=== PATIENT | male | born 1995 | race Caucasian/White ===

== ENCOUNTER 2018-01-15 17:11 | Emergency (ER) | payer OTHER ==
[2018-01-15] MEDS: BACLOFEN 10 MG TAB PO (16:29)
[2018-01-15] MEDS: PERCOCET 5MG/325MG TAB PO (16:30)
== END 2018-01-15 17:46 | disposition home or self-care (01) ==
LOC: M ED 17:11
DX: M51.26 Other intervertebral disc displacement, lumbar region (principal); S32.018A Other fracture of first lumbar vertebra, initial encounter for closed fracture; S32.028A Other fracture of second lumbar vertebra, initial encounter for closed fracture; S32.038A Other fracture of third lumbar vertebra, initial encounter for closed fracture; S32.048A Other fracture of fourth lumbar vertebra, initial encounter for closed fracture; W17.89XA Other fall from one level to another, initial encounter; Y92.89 Other specified places as the place of occurrence of the external cause; Y93.83 Activity, rough housing and horseplay; F17.210 Nicotine dependence, cigarettes, uncomplicated
CPT/HCPCS: 72131

== ENCOUNTER → 2022-11-07 | Outpatient (CLI) | payer OTHER ==
[~2022-11-07] MED LIST: BACL10TA2 PO; GASTROGRAFIN SOLUTION 30ML As Ordered ONE; ISOVUE-370 76% 100ML VIAL As Ordered ONE; KETO10TAB PO
== END ==
LOC: M RAD 15:36
PROVIDERS: ATTEND Nurse Practitioner Family
DX: R10.84 Generalized abdominal pain (principal)
CPT/HCPCS: 74178; Q9963; Q9967